=== PATIENT | male | born 1990 | race Caucasian/White ===

== ENCOUNTER 2020-07-05 10:32 | Emergency (ER) | payer OTHER ==
[2020-07-05] MEDS ORDERED: predniSONE 20 MG TAB ONE (11:16)
[2020-07-05] MEDS ORDERED: diphenhydrAMINE 25 MG CAP ONE (11:16)
== END 2020-07-05 12:15 ==
LOC: MADERS 10:32
DX: T63.451A Toxic effect of venom of hornets, accidental (unintentional), initial encounter (principal); T78.40XA Allergy, unspecified, initial encounter; F17.210 Nicotine dependence, cigarettes, uncomplicated
CPT/HCPCS: 99283; J7512; Q0163